=== PATIENT | female | born 1990 | race Caucasian/White ===

== ENCOUNTER 2022-07-22 14:51 | Outpatient (CLI) | payer OTHER, SELFPAY ==
--- NOTE | ~2022-07-22 | XR_ITS ---
EXAMINATION: XR abdomen/kub 1V INDICATION: Renal stone TECHNIQUE: Supine views of the abdomen were obtained on 2 radiographs. 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 No stones are identified maude g the expected courses of the ureters or within the urinary bladder. Changes of hernia repair are not ed in the right lower quadrant. The bowel gas pattern is normal. The visualized lung bases are clear. IMPRESSION: 1. Medullary nephrocalcinosis of the kidneys. Reviewed, dictated and finalized at location B. [employer]
== END 2022-07-22 14:52 | disposition home or self-care (01) ==
LOC: ANHIMG 15:01
PROVIDERS: PCP Internal Medicine; Visit Provider Nurse Practitioner Family
DX: E83.59 Other disorders of calcium metabolism (principal); N29 Other disorders of kidney and ureter in diseases classified elsewhere
CPT/HCPCS: 74018